=== PATIENT | male | born 1975 | race Asian ===

== ENCOUNTER 2019-04-01 06:31 | Emergency (ER) | payer MEDICARE, MEDICAID ==
[~2019-04-01] VITALS: Ht 185.4 cm; Wt 95.5 kg
[2019-04-01 06:36] VITALS: BP 147/95
[2019-04-01] MEDS ORDERED: CYCL-1 PO (06:54)
[2019-04-01] MEDS ORDERED: IBUP-1984 PO (06:54)
[2019-04-01] MEDS ORDERED: ACET-3067 PO (06:54)
[2019-04-01] MEDS ORDERED: ketorolac trometh inj. 60 MG/2 ML VIAL IM ONE (06:55)
== END 2019-04-01 07:42 | disposition home or self-care (01) ==
LOC: ER 06:32
DX: S29.019A Strain of muscle and tendon of unspecified wall of thorax, initial encounter (principal); F17.200 Nicotine dependence, unspecified, uncomplicated; Z79.899 Other long term (current) drug therapy; X50.1XXA Overexertion from prolonged static or awkward postures, initial encounter; Y93.89 Activity, other specified; Y92.89 Other specified places as the place of occurrence of the external cause; Y99.8 Other external cause status
CPT/HCPCS: 96372; 99283; J1885

== ENCOUNTER 2020-03-06 20:15 | Emergency (ER) | payer MEDICARE, MEDICAID ==
[~2020-03-06] VITALS: Ht 185.4 cm; Wt 97.6 kg
[~2020-03-06 20:15] MED LIST: CYCL-1 PO
[2020-03-06] MEDS ORDERED: acetaminophen 325mg tablet PO ONE (20:35)
[2020-03-06 20:45] LABS: CLARITY,URINE CLEAR (Clear); COLOR,URINE YELLOW (Yellow); GLUCOSE, URINE NEGATIVE (Neg); KETONES,URINE NEGATIVE (Neg); LEUKOCYTE ESTERASE ,URINE NEGATIVE (Neg); NITRITES, URINE NEGATIVE (Neg); OCCULT BLOOD,URINE NEGATIVE (Neg); PROTEIN,URINE NEGATIVE (Neg)
[2020-03-06 20:52] LABS: UA COLLECTION TYPE CLN CATCH MIDSTREAM
[2020-03-06 21:05] LABS: BASOPHILS # (AUTO) 0.1 X10'3 (0-0.2); BASOPHILS % (AUTO) 0.3 % (0-1); EOSINOPHILS # (AUTO) 0.1 X10'3 (0-0.9); EOSINOPHILS % (AUTO) 0.5 % (0-6); HEMATOCRIT 38.5 % (42.0-52.0); HEMOGLOBIN 13.4 g/dl (14.0-17.9); LYMPHOCYTES # (AUTO) 1.3 X10'3 (1.1-4.8); LYMPHOCYTES % (AUTO) 7.6 % (21-51); MEAN CORPUSCULAR HEMOGLOBIN 30.6 PG (27.0-31.0); MEAN CORPUSCULAR HGB CONC 34.7 g/dL (33.0-36.5); MEAN CORPUSCULAR VOLUME 88.2 FL (78-98); MEAN PLATELET VOLUME 7.7 FL (7.4-10.4); MONOCYTES % (AUTO) 5.9 % (2-12); NEUTROPHILS # (AUTO) 14.7 X10'3 (1.8-7.7); NEUTROPHILS % (AUTO) 85.7 % (42-75); PLATELET COUNT 275 X10'3 (140-440); RED BLOOD COUNT 4.36 X10'6 (4.70-6.10); RED CELL DISTRIBUTION WIDTH 12.7 % (11.5-14.5); WHITE BLOOD COUNT 17.2 X10'3 (4.5-11.0)
[2020-03-06] MEDS ORDERED: normal saline 1000ML IV soln IVB ONE (21:10)
[2020-03-06 21:16] LABS: ALANINE AMINOTRANSFERASE 11 U/L (12-78); ALBUMIN 3.9 G/DL (3.4-5.0); ALBUMIN/GLOBULIN RATIO 1.1 (1.1-1.5); ALKALINE PHOSPHATASE 87 IU/L (46-116); ANION GAP 9 (8-16); ASPARTATE AMINO TRANSFERASE 18 U/L (10-37); BILIRUBIN,TOTAL 0.3 MG/DL (0.1-1.0); BLOOD UREA NITROGEN 14 MG/DL (7-18); BUN/CREATININE RATIO 14.9 (5.4-32.0); CALCIUM 8.8 MG/DL (8.5-10.1); CHLORIDE 101 MMOL/L (99-107); CREATININE 0.94 MG/DL (0.60-1.10); GLUCOSE 108 MG/DL (70-104); POTASSIUM 4.2 MMOL/L (3.5-5.1); SODIUM 137 MMOL/L (135-145); TOTAL CARBON DIOXIDE 26.6 MMOL/L (24-32); TOTAL PROTEIN 7.3 G/DL (6.4-8.2); eGFR 87 ML/MIN
[2020-03-06] MEDS ORDERED: DIVA500T9 PO (21:31)
[2020-03-06] MEDS ORDERED: TRAZ-256 PO (21:31)
[2020-03-06] MEDS ORDERED: FLUO-1 PO (21:31)
[2020-03-06] MEDS ORDERED: RISP1TAB3 PO (21:31)
[2020-03-06] MEDS ORDERED: BACDS PO (21:31)
[2020-03-06] MEDS ORDERED: iohexol 300mg/ml 100ml inj. ONE (21:50)
[2020-03-06] MEDS ORDERED: morphine 4 MG/ML inj SYRINge IV ONE (22:15)
[2020-03-06] MEDS ORDERED: CefTRIAXone/D5W-Rocephin 1gm 50 ML IV ONE (23:05)
[2020-03-06] MEDS ORDERED: CEPH500C5 PO (23:08)
[2020-03-07 00:12] VITALS: BP 125/72
[2020-03-09] MEDS ORDERED: CEPH500C2 PO (03:14)
== END 2020-03-07 00:14 | disposition home or self-care (01) ==
LOC: ER 20:16
DX: L03.115 Cellulitis of right lower limb (principal); F17.200 Nicotine dependence, unspecified, uncomplicated; Z79.899 Other long term (current) drug therapy
CPT/HCPCS: 36415; 71045; 73701; 80053; 81003; 83605; 84145; 85025; 87040; 96361; 96365; 96375; 99285; J0696; J2270; J7030; Q9967

== ENCOUNTER 2022-11-23 23:12 | Emergency (ER) | payer MEDICAID, MEDICARE ==
[~2022-11-23] VITALS: Ht 185.4 cm; Wt 103.6 kg
[~2022-11-23 23:12] MED LIST changes: +CEPH500C2 PO; -CYCL-1 PO; +DIVA500T9 PO; +FLUO-1 PO; +HYDR-4383 PO; +RISP1TAB98 PO; +SULF1TAB45 PO; +TRAZ-256 PO
[2022-11-23] MEDS ORDERED: SULF1TAB49 PO (23:24)
[2022-11-23] MEDS ORDERED: sulfamethoxazole/trimethoprim DS (800/160mg) tablet PO ONE (23:25)
[2022-11-23 23:30] VITALS: BP 178/97
== END 2022-11-24 06:35 | disposition home or self-care (01) ==
LOC: ER 23:12
DX: L03.115 Cellulitis of right lower limb (principal); Z79.899 Other long term (current) drug therapy; Z79.1 Long term (current) use of non-steroidal anti-inflammatories (NSAID)
CPT/HCPCS: 99283

== ENCOUNTER 2022-12-27 17:42 | Emergency (ER) | payer MEDICARE ==
[~2022-12-27] VITALS: Ht 185.4 cm; Wt 101.6 kg
[2022-12-27 17:59] VITALS: BP 149/104
== END 2022-12-27 19:18 | disposition left against medical advice (07) ==
LOC: ER 17:43
DX: I10 Essential (primary) hypertension (principal); Z53.21 Procedure and treatment not carried out due to patient leaving prior to being seen by health care provider

== ENCOUNTER 2023-04-08 11:55 | Emergency (ER) | payer MEDICARE, MEDICAID ==
[~2023-04-08] VITALS: Ht 185.4 cm; Wt 100.0 kg
[2023-04-08] MEDS ORDERED: propofol 10mg/ml 20ml vial IV ONE (12:00)
--- NOTE | 2023-04-08 12:16 | NUR ---
synchronized cardioversion at [address] Nina
--- NOTE | 2023-04-08 12:22 | NUR ---
proprofol given by Dr. Shen. total of 100mg.
[2023-04-08 12:25] LABS: BASOPHILS # (AUTO) 0.2 X10'3 (0-0.2); BASOPHILS % (AUTO) 1.9 % (0-1); EOSINOPHILS # (AUTO) 0.1 X10'3 (0-0.9); EOSINOPHILS % (AUTO) 0.8 % (0-6); HEMATOCRIT 55.8 % (42.0-52.0); LYMPHOCYTES # (AUTO) 3.2 X10'3 (1.1-4.8); LYMPHOCYTES % (AUTO) 34.3 % (21-51); MEAN CORPUSCULAR HEMOGLOBIN 29.8 PG (27.0-31.0); MEAN CORPUSCULAR HGB CONC 33.5 g/dL (33.0-36.5); MEAN CORPUSCULAR VOLUME 88.8 FL (78-98); MEAN PLATELET VOLUME 7.7 FL (7.4-10.4); MONOCYTES # (AUTO) 0.8 X10'3 (0-0.9); MONOCYTES % (AUTO) 8.4 % (2-12); NEUTROPHILS # (AUTO) 5.1 X10'3 (1.8-7.7); NEUTROPHILS % (AUTO) 54.6 % (42-75); PLATELET COUNT 375 X10'3 (140-440); RED BLOOD COUNT 6.29 X10'6 (4.70-6.10); RED CELL DISTRIBUTION WIDTH 15.4 % (11.5-14.5); WHITE BLOOD COUNT 9.4 X10'3 (4.5-11.0)
[2023-04-08 12:37] LABS: ALANINE AMINOTRANSFERASE 39 U/L (12-78); ALBUMIN 3.6 G/DL (3.4-5.0); ALBUMIN/GLOBULIN RATIO 1.1 (1.1-1.5); ALKALINE PHOSPHATASE 75 IU/L (46-116); ANION GAP 9 (8-16); ASPARTATE AMINO TRANSFERASE 30 U/L (10-37); BILIRUBIN,TOTAL 0.8 MG/DL (0.1-1.0); BLOOD UREA NITROGEN 9 MG/DL (7-18); CALCIUM 8.6 MG/DL (8.5-10.1); CHLORIDE 105 MMOL/L (99-107); CREATININE 1.13 MG/DL (0.60-1.10); GLUCOSE 107 MG/DL (70-104); POTASSIUM 3.9 MMOL/L (3.5-5.1); SODIUM 140 MMOL/L (135-145); TOTAL PROTEIN 6.8 G/DL (6.4-8.2); eCRCL 91 ML/MIN; eGFR 70 ML/MIN
[2023-04-08 12:39] LABS: HEMOGLOBIN 18.7 g/dl (14.0-17.9)
--- NOTE | 2023-04-08 12:41 | NUR ---
Pt hgb 18.7. Dr. Nina informed
[2023-04-08 12:45] LABS: PRO BRAIN NATRIURETIC PEPTIDE < 30 PG/ML (0-125)
--- NOTE | 2023-04-08 14:01 | NUR ---
patients will be here after work at 1700
--- NOTE | 2023-04-08 14:47 | NUR ---
Received a phone call from [facility], spoke to Brittany KURTZ. Per Brittany, patient has been accepted but has no bed available yet and may takea couple days. They do recommend patient to have a cardiac cath done while waiting. Dr. Rodriguez notified about this. Charge nurse Molly also aware
[2023-04-08] MEDS ORDERED: amiodarone/D5 360MG/200ML BAG 200 ML IV ONE (15:25)
[2023-04-08] MEDS ORDERED: amiodarone 150mg/dext, iso-os 100 ML IV ONE (15:25)
[2023-04-08 16:43] VITALS: BP 175/102; PULSE 73; RESP 19; O2SAT 97
--- NOTE | 2023-04-08 16:53 | NUR ---
Received critical lab value Troponin [address] Rodriguez
--- NOTE | 2023-04-08 17:05 | NUR ---
Hands off report given to the flight physician. Patient on his way to [facility]. All belongings sent with patient
--- NOTE | 2023-04-08 17:22 | NUR ---
Report given to [facility] Cardiac Medsurg floor, spoke to the nurse Lyndsay KURTZ
== END 2023-04-08 17:25 | disposition short-term general hospital (02) ==
LOC: ER 11:56
DX: I47.1 Supraventricular tachycardia (principal); R07.89 Other chest pain; F12.90 Cannabis use, unspecified, uncomplicated; Z79.2 Long term (current) use of antibiotics; Z79.899 Other long term (current) drug therapy
CPT/HCPCS: 36415; 71045; 80053; 83880; 84484; 85025; 92960; 93005; 99285; J2704; J7030; 94760

== ENCOUNTER 2025-02-17 10:32 | Outpatient (CLI) | payer MEDICARE, MEDICAID ==
[~2025-02-17 10:32] MED LIST changes: +APIX5TAB3 PO; +ATOR40TA72 PO; +CARV6.2553 PO; -CEPH500C2 PO; +DAPA10TA PO; -FLUO-1 PO; -HYDR-4383 PO; +OMEP20CA16 PO; -RISP1TAB98 PO; +SACU1TAB7 PO; -SULF1TAB45 PO; +VORT20TA PO
--- NOTE | 2025-02-17 17:50 | RADIOLOGY REPORT ---
PROCEDURE: MR MRI C SPINE INDICATION: ABN REFLEX EXAM DATE: 02/17/2025 10:35 AM COMPARISON: None TECHNIQUE: MRI cervical spine without intravenous contrast. FINDINGS: Straightening of the normal cervical lordosis. There are degenerative endplate changes with anterio r osteophytes mid to lower cervical levels. The visualized posterior fossa and craniocervical junctio n are intact. Suspect abnormal cord signal at C4-5. There is no prevertebral soft tissue swelling. T2 bright lesion in the left lateral neck measuring up to 16 mm. The following axial levels are detailed below: C2-C3: Mild posterior disc osteophyte complex complicated by facet arthropathy associated with mild to moderate left neural foraminal stenosis. No significant central canal stenosis. C3-C4: Moderate posterior disc osteophyte complex complicated by facet arthropathy associated with moderate to severe bilateral neural foraminal stenosis. Central canal measures 9 mm. C4-C5: Moderate posterior disc osteophyte complex complicated by facet arthropathy associated with moderate to severe bilateral neural foraminal stenosis. Central canal measures 8 mm. C5-C6: Moderate posterior disc osteophyte complex complicated by facet arthropathy associated with moderate to severe bilateral neural foraminal stenosis. Central canal measures 9 mm. C6-C7: Moderate posterior disc osteophyte complex complicated by facet arthropathy associated with moderate to severe bilateral neural foraminal stenosis. Central canal measures 9 mm. C7-T1: Unremarkable. Left perineural cysts noted. IMPRESSION: 1. Multilevel moderate to advanced degenerative disease. Moderate central canal stenosis C4-Mild noa tral canal stenosis C3-4, C5-6 and C6-7. Neural foraminal stenosis as above. Suspect abnormal cord s ignal at C4-5. Clinical correlation and continued follow-up is recommended. 2. T2 bright lesion in the lateral left neck is indeterminate. Recommend further evaluation with ult rasound and/or CT of the neck with contrast. HS:Y
== END 2025-02-17 23:59 | disposition home or self-care (01) ==
LOC: MRI02 10:32
PROVIDERS: ATTEND Nurse Practitioner
DX: M50.323 Other cervical disc degeneration at C6-C7 level (principal); R29.2 Abnormal reflex; M48.02 Spinal stenosis, cervical region; M47.812 Spondylosis without myelopathy or radiculopathy, cervical region; G96.191 Perineural cyst
CPT/HCPCS: 72141